=== PATIENT | male | born 1935 | race Caucasian/White ===

== ENCOUNTER 2018-02-05 13:46 | Outpatient (CLI) | payer MEDICARE, BC ==
[2018-02-05] MEDS ORDERED: Iopamidol 370 76% 100 ML VIAL ONE (15:15)
--- NOTE | 2018-02-05 16:30 | CT ---
CT ANGIOGRAM OF THE NECK: 02/05/18 HISTORY: Stenosis. Abnormal left carotid ultrasound. Left carotid murmur. COMPARISON: None. TECHNIQUE: CT angiogram of the neck is performed in the axial plane. Three dimensional reformatted images are nathan bmitted for interpretation. FINDINGS: The visualized brain parenchyma is unremarkable. Adequate aeration of the sinuses and mastoid air cells. Limited evaluation of the oral cavity due to lack of dental amalgam artifact. No obvious masses in th e oral cavity. Midline fatty raphae of the tongue is preserved. Epiglottis has a normal caliber. Pre- epiglottic fat is preserved. No prevertebral soft tissue swelling. Symmetric attenuation of the parotid and submandibular glands. Symmetric attenuation of the sternocle idomastoid muscles. No evidence of lymphadenopathy by size criteria. Upper mediastinum is unremarkable. There are ground glass opacities involving both upper lobes which are nonspecific and may be due to e guille. Cervical spine vertebral body height is maintained. There is no fracture. There are varying degrees o f cervical canal stenosis and neural foraminal narrowing on the basis of degenerative change. CT ANGIOGRAM: There is appropriate enhancement and luminal diameter of the visualized aortic arch. RIGHT CAROTID: The origin of the right carotid artery has appropriate enhancement and luminal diameter. The innomina te artery, carotid bifurcation, and internal carotid artery have appropriate enhancement and luminal diameter. LEFT CAROTID: The origin of the left carotid artery has appropriate enhancement and luminal diameter. The left comm on carotid artery has appropriate enhancement and luminal diameter. The left carotid bifurcation is u nremarkable. There is calcified and noncalcified plaque in the proximal left internal carotid artery. There is short segment moderate to severe stenosis involving the proximal left internal carotid ainsley ry secondary to atherosclerotic disease. Based on the axial images, the luminal diameter is 2.3 mm. The mid to distal left internal carotid has appropriate enhancement and luminal diameter. Bilateral subclavian arteries are patent. The cervical left and right vertebral arteries are patent t hroughout their course in the neck and are essentially codominant. 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 POS: [facility]
== END 2018-02-05 13:47 | disposition home or self-care (01) ==
LOC: CT 13:46
PROVIDERS: ATTEND Internal Medicine
DX: I35.0 Nonrheumatic aortic (valve) stenosis (principal); I65.22 Occlusion and stenosis of left carotid artery
CPT/HCPCS: 70498; 82565

== ENCOUNTER 2018-03-03 13:00 | Inpatient (IN) | payer MEDICARE, BC ==
[2018-03-04] MEDS ORDERED: CEFAZOLIN/Water 2 GM/20 ML SYRINGE ONE (06:26)
[2018-03-04] MEDS ORDERED: Bupivacaine/Epinephrine 0.25% 30 ML VIAL ONE (06:32)
[2018-03-04] MEDS ORDERED: Heparin 5,000 UNITS/ML VIAL ONE (06:32)
[2018-03-04] MEDS ORDERED: Fentanyl 250 MCG/5 ML VIAL ONE (06:59)
[2018-03-04] MEDS ORDERED: PHENYLEPHRINE-NS 100 MCG/ML 10 ML SYRINGE ONE ×2 (07:00→16:12)
[2018-03-04] MEDS ORDERED: Norepinephrine 8 MG/0.9% NS 0 ML ONE ×3 (07:00→07:01)
[2018-03-04] MEDS ORDERED: Protamine Sulfate 50 MG/5 ML VIAL ONE (08:19)
[2018-03-04] MEDS ORDERED: Nitroglycerin 50 MG/250 ML BOT 250 ML ONE (08:32)
[2018-03-04] MEDS ORDERED: hydrALAZINE 20 MG/ML VIAL ONE (09:36)
[2018-03-04] MEDS ORDERED: Labetalol HCl 100 MG/20 ML VIAL ONE (09:46)
--- NOTE | 2018-03-04 10:08 | OP ---
DATE OF PROCEDURE: 03/04/2018 PREOPERATIVE DIAGNOSIS: Left carotid stenosis. POSTOPERATIVE DIAGNOSIS: Left carotid stenosis. PROCEDURE PERFORMED: Left carotid endarterectomy with bovine patch angioplasty. SURGEON: Lopez Gardner M.D. ANESTHESIA: General. ESTIMATED BLOOD LOSS: Less than 100. PROCEDURE IN DETAIL: After adequate anesthesia had been obtained, the patient was prepped and draped and after ultrasound guided localization of the bulb. Incision was made and carried down through th e platysma. Sternocleidomastoid muscle was rotated laterally. The vagus nerve was anterior to the c arotid artery. Hypoglossal nerve was identified and avoided and the little artery that went around t he bend in this hypoglossal nerve was clipped and divided. 7500 units of heparin were given. Clamps applied, arteriotomy performed, and a 12-Khmer shunt was placed. Endarterectomy was performed with nice tapering distally. The area was thoroughly irrigated. Bovine patch used to close the arteriot brittni using a running 6-0 Prolene suture. Prior to completing the suture line, the shunt was removed, the vessels back flushed, forward flushed and the area thoroughly irrigated. Flow was then restored up the external and then internal carotid artery. Following completion of this, protamine was given to partially reverse the heparin. After obtaining good hemostasis, the wound was irrigated and close d in layers.
[2018-03-04] MEDS ORDERED: Sodium Chloride 0.9% 1,000 ML IV SCH (10:40)
[2018-03-04] MEDS ORDERED: Ondansetron PF 4 MG/2 ML Vial IVP PRN (10:40)
[2018-03-04] MEDS ORDERED: Fentanyl 100 MCG/2 ML VIAL SLOW IVP PRN (10:40)
[2018-03-04] MEDS ORDERED: DOPamine 400 MG/D5W 250 ML 250 ML IVPB PRN (10:40)
[2018-03-04] MEDS ORDERED: Acetaminophen 325 MG TAB PO PRN (10:40)
[2018-03-04] MEDS ORDERED: HYDROcodone/Acetaminophen 5/325 mg Tablet PO PRN (10:40)
[2018-03-04] MEDS ORDERED: Promethazine HCl 25 MG/ML VIAL IM PRN (10:40)
[2018-03-04 10:48] VITALS: BP 115/44; BMI 24.5
[2018-03-04] MEDS: CEFAZOLIN/Water 2 GM/20 ML SYRINGE SLOW IVP SCH ×2 (13:59→21:12)
[2018-03-04] MEDS ORDERED: hydrALAZINE 20 MG/ML VIAL SLOW IVP PRN (15:18)
[2018-03-04] MEDS ORDERED: ALPRAZolam 0.25 MG TAB PO PRN (15:19)
[2018-03-04] MEDS ORDERED: Heparin 10,000 UNITS/ 10 ML VIAL ONE (16:12)
[2018-03-04] MEDS ORDERED: Ondansetron PF 4 MG/2 ML Vial ONE (16:12)
[2018-03-04] MEDS ORDERED: Lidocaine 1% PF 5 ML VIAL ONE (16:12)
[2018-03-04] MEDS ORDERED: Labetalol 100 MG/20 ML MDV ONE (16:12)
[2018-03-04] MEDS ORDERED: Glycopyrrolate 0.2 MG/ML 5 ML SYRINGE ONE (16:12)
[2018-03-04] MEDS ORDERED: PROPOFOL 200 MG/20 ML VIAL ONE (16:12)
[2018-03-04] MEDS ORDERED: ePHEDrine/0.9% NaCl/PF SYRINGE 50 mg/10 ml ONE (16:12)
[2018-03-04] MEDS ORDERED: Tamsulosin HCl 0.4 MG CAP PO SCH (21:00)
[2018-03-04] MEDS ORDERED: PARoxetine 20 MG TAB PO SCH (21:00)
[2018-03-05 04:08] VITALS: TEMP 98.3
[2018-03-05] MEDS: CEFAZOLIN/Water 2 GM/20 ML SYRINGE SLOW IVP SCH (05:32)
--- NOTE | 2018-03-05 07:37 | DIS ---
DATE OF ADMISSION: 03/04/2018 DATE OF DISCHARGE: 03/05/2018 SUMMARY: This is a gentleman with an asymptomatic severe left carotid stenosis who underwent left ca rotid endarterectomy on 03/04/2018. Postoperatively, he did require placement of a Gaston catheter wi th 700 mL residual of urine. He did have nocturia at home known ahead of time in the year of 3-6 ran ge and was counseled on the fact that he may be required a Gaston catheter at discharge. He will be s ent home with his catheter to follow up with Urology next week, and I will go ahead and start him on Flomax and Proscar in the interim. Otherwise, he is to resume his home medications. Neurologic exam is intact at discharge.
[2018-03-05] MEDS ORDERED: Finasteride 5 MG TAB PO SCH (09:00)
[2018-03-05] MEDS ORDERED: Atorvastatin Calcium 20 MG TAB PO SCH (09:00)
[2018-03-11 13:56] LABS: CO2 Tension 30.3 mmHg (35.0-45.0); O2 Tension (PaO2) 330.7 mmHg (> 60.0); pH, Arterial 7.45 (7.35-7.45)
[2018-03-11 13:57] LABS: Actual Bicarbonate (HCO3a) 21.1 mEq/L (22-28); O2 Tension (PaO2) 216.9 mmHg (> 60.0)
[2018-03-11 13:57] LABS: Actual Bicarbonate (HCO3a) 20.5 mEq/L (22-28); Analyzer IN Cardio OR; Base Excess (BEa) -2.3 mEq/L (-2.0 to +3.0); Calcium, Ionized 1.2 mmol/L (1.12-1.30); Carboxyhemoglobin (COHb) 1.5 gm% (0.0-3.0); Hematocrit-ABG 37.8 % (42.0-52.0); Hemoglobin (Hb) 14.3 g/dL (14.0-18.0); Potassium - ABG Lab 3.5 mmol/L (3.70-5.30); Puncture Site ALINE
[2018-03-11 13:58] LABS: Analyzer IN Cardio OR; Base Excess (BEa) -3.1 mEq/L (-2.0 to +3.0); Calcium, Ionized 1.1 mmol/L (1.12-1.30); Carboxyhemoglobin (COHb) 1.6 gm% (0.0-3.0); Hematocrit-ABG 34.2 % (42.0-52.0); Hemoglobin (Hb) 11.3 g/dL (14.0-18.0); Potassium - ABG Lab 3.8 mmol/L (3.70-5.30); Puncture Site ALINE
== END 2018-03-05 08:30 | disposition home or self-care (01) | DRG 39 ==
LOC: SURG A 03-04 05:45 → CCU 03-04 10:09 → EDSTATUS 03-04 13:00
PROVIDERS: ADMIT Thoracic Surgery (Cardiothoracic Vascular Surgery); ATTEND Thoracic Surgery (Cardiothoracic Vascular Surgery)
PROC: 03CN0ZZ Extirpation of Matter from Left External Carotid Artery, Open Approach (ICD-10-PCS; principal; 2018-03-04)
PROC: 03UN0JZ Supplement Left External Carotid Artery with Synthetic Substitute, Open Approach (ICD-10-PCS; 2018-03-04)
DX: I65.22 Occlusion and stenosis of left carotid artery (principal); E78.00 Pure hypercholesterolemia, unspecified; I10 Essential (primary) hypertension; F41.9 Anxiety disorder, unspecified; E78.2 Mixed hyperlipidemia; Z79.82 Long term (current) use of aspirin
CPT/HCPCS: 80048; 82805; 85027; 93005; 93010; J0360; J1642; J1644; J2001; J2405; J2704; J2720; J3010; J7050

== ENCOUNTER 2018-10-22 21:46 | Emergency (ER) | payer MEDICARE, BC ==
[2018-10-22 22:11] LABS: #Basophils 0.1 thou/uL (0.0-0.2); #Eosinphils 0.1 thou/uL (0.0-0.7); #Lymphocytes 2.1 thou/uL (1.20-3.40); #Monocytes 0.7 thou/uL (0.11-0.59); #Neutrophils 6.2 thou/uL (1.40-6.50); %Basophils 0.9 % (0.0-1.0); %Eosinophils 1.3 % (0.0-10.0); %Lymphocytes 22.5 % (21.0-51.0); %Monocytes 7.8 % (0.0-10.0); %Neutrophils 67.5 % (42.0-75.0); Hemoglobin 15.3 g/dL (14.0-18.0); Mean Corpuscular HGB CONC 33.8 g/dL (32.0-36.0); Mean Corpuscular Hemoglobin 31.3 pg (27.0-31.0); Mean Corpuscular Volume 92.7 fL (78.0-98.0); Mean Platelet Volume 8.7 fL (7.4-10.4); Platelet Count 186 thou/uL (130-400); RBC Distribution Width 12.3 % (11.5-14.5); White Blood Cell (WBC) Count 9.1 thou/uL (4.8-10.8)
[2018-10-22 22:32] LABS: ALT (SGPT) 21 U/L (8-55); AST (SGOT) 16 U/L (5-34); Albumin 4.1 g/dL (3.4-4.8); Alkaline Phosphatase 87 U/L (40-150); Anion Gap 14 mmol/L (10-20); BUN (Urea Nitrogen) 22 mg/dL (8.4-25.7); Bilirubin, Total 0.8 mg/dL (0.2-1.2); Calc. Creatinine Clearance 0 mL/min (70-130); Calcium 9.4 mg/dL (7.8-10.44); Carbon Dioxide 23 mmol/L (23-31); Chloride 106 mmol/L (98-107); Estimated GFR-MDRD 60; Globulin 2.9 g/dL (2.4-3.5); Glucose 130 mg/dL (83-110); Potassium 4.1 mmol/L (3.5-5.1); Sodium 139 mmol/L (136-145)
--- NOTE | 2018-10-22 23:03 | RAD ---
PORTABLE FRONTAL CHEST RADIOGRAPH 10/22/18 HISTORY: Light headed. FINDINGS: No pneumothorax, pleural fluid, focal consolidation, or alveolar edema. Mild interstitial prominence and pulmonary hyperinflation. Heart and mediastinal contours are unremar kable. IMPRESSION: No acute findings. POS: [facility]
[2018-10-22 23:45] LABS: Bilirubin Negative (Negative); Blood, Urine Negative (Negative); Clarity CLEAR (Clear); Glucose, Urine (Dipstick) Negative (Negative); Leukocyte Small (Negative); Nitrite Positive (Negative); Protein, Urine (Dipstick) Trace mg/dL (Neg-Trace); Specific Gravity, Urine 1.028 (1.002-1.036)
[2018-10-22 23:49] LABS: Bacteria/HPF 1+ HPF (None Seen); Hyaline Casts/LPF 0-3 HYALINE CAST LPF (0-3 Hyaline); Pathc Cast-AUWi Flag 0.14 (0-2.49); Squamous Epithelial None Seen HPF (0-3); WBC/HPF 21-50 HPF (0-3)
== END 2018-10-23 00:38 | disposition home or self-care (01) ==
LOC: ERS 21:46
DX: N30.00 Acute cystitis without hematuria (principal); R55 Syncope and collapse; E78.5 Hyperlipidemia, unspecified; F41.9 Anxiety disorder, unspecified; N40.0 Benign prostatic hyperplasia without lower urinary tract symptoms; Z79.899 Other long term (current) drug therapy; Z79.82 Long term (current) use of aspirin
CPT/HCPCS: 36415; 71045; 80053; 81003; 81015; 84484; 85025; 87077; 87086; 87186; 93005